=== PATIENT | female | born 1995 | race Caucasian/White ===

== ENCOUNTER → 2020-07-09 | Outpatient (CLI) | payer BC | LOC: LAB.O 16:14 | PROVIDERS: ATTEND Nurse Practitioner Acute Care | DX: N93.9 Abnormal uterine and vaginal bleeding, unspecified (principal) ==

== ENCOUNTER → 2020-07-23 | Outpatient (CLI) | payer BC | LOC: GMALS 17:04 | PROVIDERS: ATTEND Nurse Practitioner Acute Care | DX: O20.0 Threatened abortion (principal) ==